=== PATIENT | male | born 1995 | race Caucasian/White ===

== ENCOUNTER 2020-10-12 23:44 | Emergency (ER) | payer SELFPAY ==
[~2020-10-12] VITALS: Ht 177.8 cm; Wt 68.0 kg
[2020-10-12 23:54] VITALS: BP 138/96; Ht 177.8 cm; Wt 68.0 kg
[2020-10-13] MEDS ORDERED: PENICILLIN V P500 MG PO (00:24)
== END 2020-10-13 00:40 | disposition home or self-care (01) ==
LOC: D.ER 23:44
DX: M79.642 Pain in left hand (principal)